=== PATIENT | male | born 1940 | race Caucasian/White ===

== ENCOUNTER 2021-03-11 06:40 | Day surgery (SDC) | payer MEDICARE ==
[2021-03-08 14:01] VITALS: BMI 30.3
[2021-03-11] MEDS ORDERED: Lidocaine 1% MPF 2 ML VIAL ONE (07:30)
[2021-03-11] MEDS ORDERED: PROPOFOL 20 ML ONE ×3 (09:02→09:25)
== END 2021-03-11 10:32 | disposition home or self-care (01) ==
LOC: CSHSDC 06:40
PROVIDERS: ATTEND Internal Medicine Gastroenterology
PROC: 0DBH8ZZ Excision of Cecum, Via Natural or Artificial Opening Endoscopic (ICD-10-PCS; principal; 2021-03-11)
DX: Z12.11 Encounter for screening for malignant neoplasm of colon (principal); D12.2 Benign neoplasm of ascending colon; D12.0 Benign neoplasm of cecum; K57.30 Diverticulosis of large intestine without perforation or abscess without bleeding; K64.9 Unspecified hemorrhoids
CPT/HCPCS: 88305; J2704

== ENCOUNTER 2021-05-19 09:21 | Emergency (ER) | payer MEDICARE ==
[2021-05-19] MEDS ORDERED: traMADol HCl 50 MG TAB ONE (10:36)
== END 2021-05-19 12:36 | disposition home or self-care (01) ==
LOC: CSHERS 09:21
DX: M62.830 Muscle spasm of back (principal); I10 Essential (primary) hypertension; I25.10 Atherosclerotic heart disease of native coronary artery without angina pectoris; I25.2 Old myocardial infarction
CPT/HCPCS: 72100

== ENCOUNTER 2023-03-04 10:39 | Outpatient (CLI) | payer MEDICARE | END 2023-03-04 10:40 | disposition home or self-care (01) | LOC: CSHWCC 10:39 | PROVIDERS: ATTEND Nurse Practitioner Family | DX: I74.3 Embolism and thrombosis of arteries of the lower extremities (principal) | CPT/HCPCS: 97139; G0463; 99203 ==

== ENCOUNTER 2023-03-13 16:33 | Outpatient (CLI) | payer MEDICARE ==
[2023-03-13 16:37] VITALS: BMI 29.2
[2023-03-13 17:12] LABS: Hematocrit 38.1 % (38.8-50.0); Hemoglobin 12.9 g/dL (13.5-17.5); Mean Corpuscular HGB CONC 33.9 g/dL (32.0-36.0); Mean Corpuscular Volume 97.4 fl (81.2-95.1); Mean Platelet Volume 9.7 fl (7.4-10.4); Platelet Count 162 10x3/uL (150-450); RBC Distribution Width 14.6 % (11.5-14.5); Red Blood Cell (RBC) Count 3.91 10x6/uL (4.32-5.72); White Blood Cell (WBC) Count 6.7 10x3/uL (3.5-10.5)
[2023-03-13 17:16] LABS: Anion Gap 14 mmol/L (10-20); BUN (Urea Nitrogen) 27 mg/dL (8.4-25.7); Calc. Creatinine Clearance 47 mL/min (70-130); Calcium 9.3 mg/dL (7.8-10.44); Carbon Dioxide 25 mmol/L (23-31); Chloride 103 mmol/L (98-107); Estimated GFR 40; Glucose 95 mg/dL (83-110); Potassium 4.5 mmol/L (3.5-5.1); Sodium 137 mmol/L (136-145)
== END 2023-03-13 16:34 | disposition home or self-care (01) ==
LOC: CSHLAB 16:33
PROVIDERS: ATTEND Surgery
DX: Z01.818 Encounter for other preprocedural examination (principal); I70.229 Atherosclerosis of native arteries of extremities with rest pain, unspecified extremity; I99.8 Other disorder of circulatory system
CPT/HCPCS: 80048; 85027; 93005; 93010

== ENCOUNTER 2023-03-17 09:44 | Inpatient (IN) | payer MEDICARE ==
[2023-03-17] MEDS ORDERED: Rocuronium Bromide 10 MG/ML (10ML VIAL) ONE (11:25)
[2023-03-17] MEDS ORDERED: Ondansetron PF 4 MG/2 ML Vial ONE (11:25)
[2023-03-17] MEDS ORDERED: Fentanyl 250 MCG/5 ML VIAL ONE (11:25)
[2023-03-17] MEDS ORDERED: Lidocaine 1% PF 5 ML VIAL ONE (11:25)
[2023-03-17] MEDS ORDERED: Dexamethasone 20 MG/5 ML VIAL ONE (11:25)
[2023-03-17] MEDS ORDERED: PROPOFOL 20 ML ONE (11:25)
[2023-03-17] MEDS ORDERED: PHENYLEPHRINE-NS 100 MCG/ML 10 ML SYRINGE ONE (11:25)
[2023-03-17] MEDS ORDERED: Midazolam HCl 2 mg/2 ml Vial ONE (11:25)
[2023-03-17] MEDS ORDERED: Glycopyrrolate 0.2 MG/ML 5 ML SYRINGE ONE (11:25)
[2023-03-17] MEDS ORDERED: CEFAZOLIN 2 GM VIAL ONE (11:41)
[2023-03-17] MEDS ORDERED: Ipratropium/Albuterol 3 ML NEB NEB PRN (14:25)
[2023-03-17] MEDS ORDERED: Ondansetron PF 4 MG/2 ML Vial IVP PRN (14:25)
[2023-03-17] MEDS ORDERED: Morphine 2 MG/ML VIAL SLOW IVP PRN (14:25)
[2023-03-17] MEDS ORDERED: Promethazine HCl 25 MG/ML VIAL IM PRN (14:25)
[2023-03-17] MEDS ORDERED: hydrALAZINE 20 MG/ML VIAL SLOW IVP PRN (14:25)
[2023-03-17] MEDS ORDERED: fentaNYL 50 mcg/mL 1 mL Vial ONE ×2 (14:42→15:25)
[2023-03-17 17:18] VITALS: BMI 29.2
[2023-03-17] MEDS: Ketorolac Tromethamine 30 MG/ML VIAL IVP SCH (17:57)
[2023-03-17] MEDS ORDERED: Furosemide 20 MG/2 ML VIAL SLOW IVP SCH (20:15)
[2023-03-17] MEDS: D5 1/2 NS w/20 mEq KCL 1,000 ML IV SCH (20:28)
[2023-03-18] MEDS: Ketorolac Tromethamine 30 MG/ML VIAL IVP SCH ×4 (00:26→18:26)
[2023-03-18] MEDS: D5 1/2 NS w/20 mEq KCL 1,000 ML IV SCH (05:35)
[2023-03-18] MEDS: Furosemide 40 MG TAB PO SCH (10:05)
[2023-03-18] MEDS: Losartan 25 MG TAB PO SCH (10:05)
[2023-03-18] MEDS: Amlodipine 5 MG TAB PO SCH ×2 (10:05→21:59)
[2023-03-18] MEDS ORDERED: HYDROcodone/Acetaminophen 7.5/325 mg Tablet PO PRN (14:26)
[2023-03-19] MEDS: Ketorolac Tromethamine 30 MG/ML VIAL IVP SCH ×4 (00:08→18:28)
[2023-03-19] MEDS: Amlodipine 5 MG TAB PO SCH ×2 (08:34→21:26)
[2023-03-19] MEDS: Losartan 25 MG TAB PO SCH (08:34)
[2023-03-20] MEDS: Ketorolac Tromethamine 30 MG/ML VIAL IVP SCH ×3 (00:12→12:31)
[2023-03-20] MEDS: Losartan 25 MG TAB PO SCH (09:32)
[2023-03-20] MEDS: Amlodipine 5 MG TAB PO SCH (09:33)
[2023-03-20] MEDS: Furosemide 40 MG TAB PO SCH (09:33)
[2023-03-20 12:16] VITALS: BP 113/58; TEMP 98.2
[2023-03-21] MEDS ORDERED: Furosemide 40 MG TAB PO SCH (09:00)
== END 2023-03-20 15:27 | DRG 241 ==
LOC: CSHSDC 09:44 → CSHTELE 14:25
PROVIDERS: ADMIT Surgery; ATTEND Surgery
PROC: 0Y6C0Z1 Detachment at Right Upper Leg, High, Open Approach (ICD-10-PCS; principal; 2023-03-17)
DX: I70.221 Atherosclerosis of native arteries of extremities with rest pain, right leg (principal); Z79.899 Other long term (current) drug therapy; Z79.82 Long term (current) use of aspirin; Z79.01 Long term (current) use of anticoagulants; I11.9 Hypertensive heart disease without heart failure; Z80.0 Family history of malignant neoplasm of digestive organs; I48.91 Unspecified atrial fibrillation; Z95.0 Presence of cardiac pacemaker; I25.10 Atherosclerotic heart disease of native coronary artery without angina pectoris; Z95.5 Presence of coronary angioplasty implant and graft; G47.30 Sleep apnea, unspecified
CPT/HCPCS: 71045; 88307; 94640; 94760; J1100; J1650; J1885; J1940; J2250; J2272; J2405; J2704; J3010; J3480; J7620